=== PATIENT | male | born 1985 | race Caucasian/White ===

== ENCOUNTER 2022-04-17 19:21 | Outpatient (CLI) | payer OTHER | END 2022-04-17 19:22 | disposition home or self-care (01) | LOC: SC 19:21 | PROVIDERS: ATTEND Nurse Practitioner Family | DX: G47.61 Periodic limb movement disorder (principal) | CPT/HCPCS: 95810 ==

== ENCOUNTER 2022-04-19 07:27 | Outpatient (CLI) | payer OTHER ==
--- NOTE | 2022-04-20 12:12 | MRI Report ---
PROCEDURE: SHOULDER WO - RT INDICATIONS: PAIN IN RIGHT SHOULDER TECHNIQUE: Noncontrast oblique coronal T2 fast spin echo with fat saturation, oblique sagittal T1 spin echo and T2 fast spin echo with fat saturation, axial T1 spin echo and T2 fast spin echo with fat saturation t hrough the shoulder. COMPARISON: None. FINDINGS: Image quality: Excellent. Rotator cuff: There is moderate supraspinatus, infraspinatus and subscapularis tendinosis. Suspect pa rtial thickness tear of the infraspinous tendon along the bursal and articular surfaces. No rotator cuff muscle atrophy on sagittal images. Bones and bursae: No bone marrow contusions or fractures. Mild acromioclavicular and glenohumeral lindsey int degeneration. The acromion demonstrates conventional anatomy, without an os acromiale. No patho logic subacromial/subdeltoid bursal fluid is present. Capsule and soft tissues: There is tear of the posterior superior labrum. Small paralabral cysts are present superior labrum (series 6 image 8-9). In the absence of intra-articular contrast, the glenoh umeral ligaments appear intact. The long head of the biceps tendon demonstrates normal location and morphology. The rotator interval appears normal, without fibrosis. The coracohumeral ligament is no rmal in thickness. IMPRESSION: 1. Moderate supraspinous, infraspinatus and subscapularis tendinosis. 2. Mild acromioclavicular and glenohumeral joint degeneration. 3. Posterior superior labral tear with paralabral cysts. Reviewed by: Roxane Garrett MD on 04/20/2022 12:11 PM PDT Approved by: Roxane Garrett MD on 04/20/2022 12:11 PM PDT Station ID: [id number]
== END 2022-04-19 07:28 | disposition home or self-care (01) ==
LOC: DI 07:27
PROVIDERS: ATTEND Orthopaedic Surgery
DX: M19.011 Primary osteoarthritis, right shoulder (principal); S43.431A Superior glenoid labrum lesion of right shoulder, initial encounter; M71.311 Other bursal cyst, right shoulder; M67.813 Other specified disorders of tendon, right shoulder

== ENCOUNTER 2022-05-03 14:19 | Outpatient (CLI) | payer OTHER ==
--- NOTE | 2022-05-03 15:04 | SLEEP CARE CONSULTATION ---
Information from patient questionnaire entered by Therese Hansen. I have reviewed and concur with the information entered by Therese Hansen. This document represents the service I personally performed and the decisions made by , Cyn Seay ARNP. History of Present Illness Service Date and Time: 05/03/2022 1419 Initial [place] Sleepiness Scale score: 11 (03/22/22) Current [place] Sleepiness Scale score: 16 (05/03/2022) Additional HPI information: TRACEY BOYLE returns for follow up and results of the recently performed polysomnography. The patient was informed of the following findings: No significant sleep disordered breathing with an average AHI of 4.5 and padmini oxygen saturation of 86%. Patient had a supine AHI of 8.0 and severe PLMs contributing to sleep fragmentation. I explained the pathophysiology behind obstructive sleep apnea. Patient does not have sleep apnea and was advised how weight gain could increase the risk of developing sleep apnea in the future. Patient does not have significant sleep disordered breathing but has elevated AHI in supine position so advised positional therapy. Patient has moderate to loud snoring. Sleep Study - Results Type of Sleep Study: Polysomnography (COMPLETED 04/17/2022) Prior sleep studies: Yes Year and Where: 18 years ago, [facility] Polysomnography/Home Sleep Study results: IMPRESSION: The quality of the study is good. The patient had reduced sleep efficiency due to frequent awakenings and a prolonged awakening in the middle of the night. The sleep architecture was abnormal for sleep fragmentation and lack of REM sleep. Respiratory monitoring showed no significant sleep disordered breathing (AHI = 4.5) associated with frequent arousals, oxyhemoglobin desaturation and mild hypoxia (padmini oxygen saturation of 86%) and only 0.3% to the total sleep time was spent with oxygen saturation below 90%). The few respiratory events occurred almost exclusively during supine sleep (supine AHI = 8.0; non-supine = 1.65). Snore was moderate to loud in intensity. There was severe periodic leg movement of sleep contributing to the sleep fragmentation. Cardiac rhythm was normal sinus rhythm without significant arrhythmia. No abnormal behavior (parasomnia) observed during the night. Allergies and Home Medications Drug allergies reviewed: Yes (NKDA) Home medication list reviewed: Yes (no changes) Review of Systems Review of systems same as previous: Yes (no changes) Physical Exam Vital signs obtained and entered by: THERESE Gonzalez MA Blood Pressure: 122/80 (LEFT ARM) Cuff size: regular Heart Rate: 115 O2 Saturation: 97 Height: 6 ft Weight: 229 lb 12.8 oz Body Mass Index: 31.1 BMI Classification: Obese Impression and Plan 1. Suspected Obstructive Sleep Apnea-Hypopnea Syndrome, as suggested by a history of loud and irregular snoring, observed cessation of breath while asleep, gasping or choking in sleep, frequent awakening during the night, unrefreshed sleep, cognitive impairment, and excessive daytime sleepiness. Patient did not feel that the night in the sleep lab represented his sleep. He does have elevation of supine AHI and he states he is mostly a back sleeper. Because his AHI is close for diagnosis, I recommend proceeding to polysomnography to confirm the diagnosis and to assess severity. I obtained agreement to proceed. The pathophysiology of obstructive sleep apnea-hypopnea syndrome was discussed with the patient and health risks of cardiovascular and cerebrovascular disease if not treated. Risks of drowsy driving discussed in detail and patient advised to avoid long distance driving and to pick pulling machine tender at the first sign of drowsiness. Patient agreed to plan. 2. Periodic limb movement, severe, that did contribute to fragmentation of patients sleep. Periodic limb movement of sleep (PLMS) is characterized by episodes of repetitive limb movements that occur during sleep and usually involve the lower limbs. The etiology is unknown. Caffeine can aggravate PLMS and should be avoided. Sleep hygiene methods can also improve sleep as well as lifestyle changes such as regular exercise. Patient was advised that treatment may be needed at this time and further evaluation may be indicated. He was advised to follow up with primary doctor for further evaluation and treatment as needed. 2. Obesity, unspecified. Currently patients BMI is 31.1. Obesity increases the risk of apnea, CPAP pressure requirements and overall health risks especially cardiovascular and diabetes. Thus patient is advised to lose weight. * Schedule polysomnography/HST * Avoid long distance driving or driving when feeling sleepy. * Avoid alcohol, sedative and muscle relaxant around bedtime. * Attempt to lose weight. * Review instructions provided by trained office staff on how to prepare for the sleep study. * Return for follow-up after sleep study completed. Counseling Topics: Sleeping position, Weight loss health impact Visit Type: In Office Time Spent with Patient (minutes): 21 Provider Statement: I spent 100% of the Face to Face Visit with the patient with greater than 50% spent counseling the patient and coordination of care.
[2022-05-03 15:05] VITALS: BP 122/80
== END 2022-05-03 14:20 | disposition home or self-care (01) ==
LOC: SC 14:19
PROVIDERS: ATTEND Nurse Practitioner Family
DX: G47.61 Periodic limb movement disorder (principal); R06.83 Snoring; G47.8 Other sleep disorders; R06.81 Apnea, not elsewhere classified; G47.10 Hypersomnia, unspecified; R53.83 Other fatigue; F32.A Depression, unspecified; E66.9 Obesity, unspecified; Z68.31 Body mass index [BMI] 31.0-31.9, adult
CPT/HCPCS: 99212; 99213

== ENCOUNTER 2022-06-12 09:48 | Outpatient (CLI) | payer OTHER | END 2022-06-12 09:49 | disposition home or self-care (01) | LOC: SC 09:48 | PROVIDERS: ATTEND Nurse Practitioner Family | DX: R06.83 Snoring (principal); G47.8 Other sleep disorders; R53.83 Other fatigue; F32.A Depression, unspecified; F81.9 Developmental disorder of scholastic skills, unspecified; G47.10 Hypersomnia, unspecified; R06.81 Apnea, not elsewhere classified; R09.02 Hypoxemia; R00.0 Tachycardia, unspecified | CPT/HCPCS: 95806 ==

== ENCOUNTER 2022-06-26 11:38 | Outpatient (CLI) | payer OTHER ==
--- NOTE | 2022-06-26 10:29 | SLEEP CARE CONSULTATION ---
Information from patient questionnaire entered by Therese Hansen. I have reviewed and concur with the information entered by Therese Hansen. This document represents the service I personally performed and the decisions made by , Cyn Seay ARNP. History of Present Illness Service Date and Time: 06/26/2022 1020 Initial [place] Sleepiness Scale score: 11 (03/22/22) Current [place] Sleepiness Scale score: 14 (06/26/2022) Additional HPI information: ASHISH BOYLE returns via video telehealth visit for follow up and results of the recently performed home sleep study. The patient was informed of the following findings: No significant sleep disordered breathing with an average AHI of 1.6 and padmini oxygen saturation of 88%. Patient had a fair quality study due to loss of airflow signal during the first half of the test. Patient did not sleep supine during the study I explained the pathophysiology behind obstructive sleep apnea. Patient does not have sleep apnea and was advised how weight gain could increase the risk of dev eloping sleep apnea in the future. Patient has moderate snoring. Snoring can be reduced by weight loss. Patient counseled not drink alcohol less than 4 hours before bedtime as it can increase snoring and apnea. Patient was cautioned about risks of drowsy driving until sleepiness symptoms resolve. Sleep Study - Results Type of Sleep Study: Home sleep study (COMPLETED 06/12/22) Prior sleep studies: Yes Year and Where: 18 years ago, [facility] Polysomnography/Home Sleep Study results: Physician Impression: The quality of the study is fair due to loss of airflow signal during the first half of the test. The length of the study is adequate (> 240 minutes). Please also see the tabulated and graphic data. 1. No significant sleep-disordered breathing, with an AHI of 1.6/hr and padmini SaO2 of 88%. During the study, the patient had 6 apneas (6 obstructive, 0 central, 0 mixed) and 3 hypopneas. The longest episode lasted 55.5 seconds. The patient did not sleep supine during this study. 2. Hypoxemia (ICD-10 R09.02), minimal, with the lowest oxygen saturation of 88 % and 2.8 minutes with SaO2 under 90%. Baseline oxygen saturation was normal (Average oxygen saturation was 93%). 3. Tachycardia, with maximum recorded heart rate of 126 beats per minute. Allergies and Home Medications Drug allergies reviewed: Yes (NKDA) Home medication list reviewed: Yes (no changes) Allergy and home medication list: Allergies No Known Drug Allergies Allergy (Verified 05/03/22 14:40) Review of Systems Review of systems same as previous: Yes (no changes) Physical Exam Vital signs obtained and entered by: VIA PHONE THERESE Gonzalez MA Height: 6 ft (PER PT ) Weight: 230 lb (PER PT) Body Mass Index: 31.1 BMI Classification: Obese Impression and Plan 1. Snoring but no significant sleep disordered breathing. Patient did not sleep supine during the HST so sleep disordered breathing supine cannot be ruled out. I advised patient that the study was fair due to loss of airflow signal. I feel it would be advantageous to repeat the sleep study to verify. Ashish agreed. I will reorder the HST and he will be notified for scheduling once we have authorization. Patient advised that often weight loss will reduce snoring as well as apnea risk. An oral appliance can also be used for snoring. This would require a dental consultation. Patient cautioned not to use other online appliances as can cause bite issues. A list of accredited dentists in area and one local dentist who makes oral appliances given. Patient is advised to check if insurance will cover. An ENT consult can also be helpful to determine if any other treatment is an option. 2. Tachycardia, with maximum recorded heart rate of 126 beats per minute during the HST. Patient should follow up with PCP for consideration of cardiac monitoring for the recorded tachycardia. * Schedule polysomnography/HST * Follow up with PCP for further evaluation of tachycardia noted during HST * Avoid long distance driving or driving when feeling sleepy. * Avoid alcohol, sedative and muscle relaxant around bedtime. * Attempt to lose weight. * Review instructions provided by trained office staff on how to prepare for the sleep study. * Return for follow-up after sleep study completed. Counseling Topics: Weight loss health impact Visit Type: Telehealth Video Video Type: Doxhemanthity Patient Location: Work Location of Provider: Office Patient agrees and consents to this telehealth visit type: Yes Patient agrees to have their insurance billed: Yes Time Spent with Patient (minutes): 12 Provider Statement: I spent 100% of the Telehealth Video Call with the patient with greater than 50% spent counseling the patient and coordination of care.
== END 2022-06-26 11:39 | disposition home or self-care (01) ==
LOC: SC 11:38
PROVIDERS: ATTEND Nurse Practitioner Family
DX: R06.83 Snoring (principal); R00.0 Tachycardia, unspecified; E66.9 Obesity, unspecified; Z68.31 Body mass index [BMI] 31.0-31.9, adult; G47.8 Other sleep disorders; R06.81 Apnea, not elsewhere classified; R41.89 Other symptoms and signs involving cognitive functions and awareness; G47.10 Hypersomnia, unspecified; F32.A Depression, unspecified

== ENCOUNTER 2022-07-16 12:26 | Outpatient (CLI) | payer OTHER | END 2022-07-16 12:27 | disposition home or self-care (01) | LOC: SC 12:26 | PROVIDERS: ATTEND Nurse Practitioner Family | DX: R09.02 Hypoxemia (principal) | CPT/HCPCS: 95806 ==

== ENCOUNTER 2022-08-02 14:40 | Outpatient (CLI) | payer OTHER ==
--- NOTE | 2022-08-02 15:15 | SLEEP CARE CONSULTATION ---
Information from patient questionnaire entered by Therese Hansen. I have reviewed and concur with the information entered by Therese Hansen. This document represents the service I personally performed and the decisions made by , Cyn Seay ARNP. History of Present Illness Service Date and Time: 08/02/2022 1440 Initial [place] Sleepiness Scale score: 11 (03/22/22) Current [place] Sleepiness Scale score: 14 (08/02/22) Additional HPI information: TRACEY BOYLE returns for follow up and results of the recently performed home sleep study. The patient was informed of the following findings: No significant sleep disordered breathing with an average AHI of 4.6 and padmini oxygen saturation of 84%. Patient did not sleep supine during the study. I explained the pathophysiology behind obstructive sleep apnea. Patient does not have sleep apnea and was advised how weight gain could increase the risk of developing sleep apnea in the future. I strongly encouraged the patient to lose weight. Patient has moderate snoring. Snoring can be reduced by weight loss. Weight loss is best achieved with diet consult. Patient instructed to contact PCP for referral. Snoring can also be treated with an oral appliance from a dentist. Advised to check insurance coverage. In addition, an ENT evaluation can be do to see if other treatment is indicated. Patient was cautioned about risks of drowsy driving until sleepiness symptoms resolve. Sleep Study - Results Type of Sleep Study: Home sleep study (COMPLETED 07/16/22) Prior sleep studies: Yes Year and Where: 18 years ago, [facility] Polysomnography/Home Sleep Study results: Physician Impression: The quality of the study is good. The length of the study is adequate (> 240 minutes). Please also see the tabulated and graphic data. 1. No significant sleep disordered breathing, with an AHI of 4.6/hr and padmini SaO2 of 84%. During the study, the patient had 25 apneas (25 obstructive, 0 central, 0 mixed) and 35 hypopneas. The longest episode lasted 81.0 seconds. The patient did not sleep supine during this study (supine AHI was 0 and non-supine, 4.60). 2. Hypoxemia (ICD-10 R09.02), mild, with the lowest oxygen saturation of 84 % and 7.3 minutes with SaO2 under 90%. Baseline oxygen saturation was normal (Average oxygen saturation was 93%). Allergies and Home Medications Drug allergies reviewed: Yes (NKDA) Home medication list reviewed: Yes (no changes) Review of Systems Review of systems same as previous: Yes (no changes) Physical Exam Vital signs obtained and entered by: THERESE Gonzalez MA Blood Pressure: 138/80 (LEFT ARM) Cuff size: regular Heart Rate: 109 O2 Saturation: 98 Height: 6 ft (PER PT ) Weight: 236 lb 9.6 oz Body Mass Index: 32.1 BMI Classification: Obese Impression and Plan 1. Snoring but no significant sleep disordered breathing. His average AHI was 4.6 without any supine sleep noted during the study. Patient advised that often weight loss will reduce snoring as well as apnea risk. An oral appliance can also be used for snoring. This would require a dental consultation. Patient cautioned not to use other online appliances as can cause bite issues. A list of accredited dentists in [facility] and one local dentist who makes oral appliances is available in office. Patient is advised to check if insurance will cover. An ENT consult can also be helpful to determine if any other treatment is an option. 2. Excessive daytime sleepiness. Patient is concerned about his daytime sleepiness. He states his tells him that he does not breathe well at night and he is very fatigued during the day because of it. He did do an in lab PSG which showed an AHI of 4.5, supine AHI of 8.0 and nonsupine AHI of 1.65. He also had severe PLMs that did contribute to sleep fragmentation. He states his does not feel his legs are moving so much to disturb his or her sleep. He also had an RDI of 6.7 that night. I discussed with him that I would discuss his case with Dr. Plummer for further insights and recommendations. I will get back to him later on. * Discuss his case with Dr. Plummer and let patient know results. * Attempt to lose weight * Avoid alcohol consumption near bedtime * The patient is cautioned about driving until sleepiness is completely resolved. * Return as needed. Counseling Topics: Weight loss health impact Visit Type: In Office Time Spent with Patient (minutes): 14 Provider Statement: I spent 100% of the Face to Face Visit with the patient with greater than 50% spent counseling the patient and coordination of care.
[2022-08-02 15:19] VITALS: BP 138/80
== END 2022-08-02 14:41 | disposition home or self-care (01) ==
LOC: SC 14:40
PROVIDERS: ATTEND Nurse Practitioner Family
DX: R06.83 Snoring (principal); G47.10 Hypersomnia, unspecified; R06.81 Apnea, not elsewhere classified; E66.9 Obesity, unspecified; Z68.32 Body mass index [BMI] 32.0-32.9, adult; R53.83 Other fatigue
CPT/HCPCS: 99212